=== PATIENT | female | born 1970 | race Caucasian/White ===

== ENCOUNTER 2017-08-25 20:39 | Emergency (ER) | payer OTHER ==
[~2017-08-25] VITALS: Ht 162.6 cm; Wt 63.5 kg
[~2017-08-25 20:39] MED LIST: ANTIBIOTICS X2; KETC15T TOP; LOR5/325 PO; SUM25 PO
[2017-08-25 21:53] VITALS: BP 142/83
--- NOTE | 2017-08-25 21:55 | ER Report ---
History and Physical Time Seen By MD: 21:54 HPI/ROS CHIEF COMPLAINT: Puncture wound HISTORY OF PRESENT ILLNESS: This is a 46-year-old female who presents to the emergency department for a puncture wound between the 4th and 5th toe. Patient states she was walking around her couch and there was an area where on the ground she kicked out of the antler tines and sunk into the webspace between the 4th and 5th toe on the right foot. Patient denies aches, chills, nausea, vomiting, diarrhea. REVIEW OF SYSTEMS: Respiratory: No cough, no dyspnea. Cardiovascular: No chest pain, no palpitations. Gastrointestinal: No vomiting, no abdominal pain. Musculoskeletal: No back pain. Integumentary: As above. Allergies: Coded Allergies: No Known Drug Allergies (Unverified , 08/25/17) Home Meds Active Scripts Amoxicillin/Pot Clav 875-125 Mg Tab (AUGMENTIN 875-125 TABLET) 1 Each Tablet, 1 TAB PO Q12H for 10 Days, #19 TAB 0 Refills Prov:ANTON ROWE [employer]-BC 08/25/17 Discontinued Reported Medications Ketoconazole (Nizoral) 15 Gm Cr, 0 TOP BID-TID for 7 Days, 0 Refills APPLY TO AFFECTED AREAS 04/04/08 [Antibiotics X2] No Conflict Check, 0 Refills 04/03/08 Acetaminophen/Hydrocodone (Lortab 5/325 Mg) 5 Mg/325 Mg Tab, 2 EA PO ONCE, 0 Refills 04/03/08 Sumatriptan Succinate (Imitrex) 25 Mg Tab, 25 MG PO PRN, 0 Refills 04/02/08 Past Medical/Surgical History The patient has a past medical and surgical history of migraines, wears contacts , 2. Reviewed Nurses Notes: Yes Constitutional Vital Sign - Last 24 Hours 08/25/17 21:53 Pulse 87 Resp 14 B/P (MAP) 142/83 Pulse Ox 95 Physical Exam General Appearance: The patient is alert, has no immediate need for airway protection and no current signs of toxicity. Eyes: Pupils equal and round no injection. Respiratory: Chest is non tender, lungs are clear to auscultation. Cardiac: regular rate and rhythm. Gastrointestinal: Abdomen is soft and non tender, no masses, bowel sounds normal. Musculoskeletal: Neck: Neck is supple and non tender. Extremities have full range of motion and are non tender. Skin: There is a puncture wound in the webspace between the 4th and 5th toes on the right foot. There is also a laceration about 1.5 cm long between the toes. DIFFERENTIAL DIAGNOSIS: After history and physical exam differential diagnosis was considered for puncture wound, laceration, tendon rupture. Medical Decision Making EKG/Imaging Imaging Location: [facility] Patient: Bárbara Hart : 1970 Visit/Account:[id number] Date of Sevice: 08/25/2017 EXAMINATION: Right foot 3 views HISTORY: Puncture wound. COMPARISON: None. FINDINGS: No evidence of acute fracture or dislocation about the right foot. Normal alignment. Joint spaces are preserved. Soft tissues are unremarkable. No radiopaque foreign body. IMPRESSION: Negative right foot. Report Dictated By: Arthur Rodgers MD at 08/25/2017 10:47 PM Report E-Signed By: Arthur Rodgers MD at 08/25/2017 10:48 PM WSN:[id number] ED Course/Re-evaluation ED Course The patient was admitted to return. A history and physical were obtained. Differential diagnoses were considered. A foot x-ray was obtained, showing no foreign body. The wound was anesthetized and irrigated and repaired as noted below. She tolerated well. The patient was given 1 dose of Augmentin in the emergency department. Patient's tetanus was updated. Patient was also sent home with prescription for Augmentin. Patient was instructed to monitor closely for infection. A dressing was applied to the wound. She was also encouraged to return to the emergency department or follow-up with her primary care provider for suture removal. Patient had no other questions or concerns at this time and was discharged home. Procedure: Laceration repair. Verbal consent was obtained from the patient. The 1.5 cm laceration on the web space between the right 5th and 4th toes was anesthetized in the usual fashion. The wound was scrubbed, draped and explored to its base with a gloved finger. There were no deep structures involved. No tendon injury was identified. The wound was repaired with 4 simple interrupted sutures using 5-0 Ethilon. The wound repair was simple. The procedure was performed by myself. Decision to Disposition Date: Aug 25, 2017 Decision to Disposition Time: 23:02 Depart Departure Latest Vital Signs Vital Signs Date Time Temp Pulse Resp B/P (MAP) Pulse Ox O2 Delivery O2 Flow Rate FiO2 08/25/17 21:53 87 14 142/83 95 Impression: Primary Impression: Puncture wound of foot, right Condition: Improved Disposition: HOME OR SELF-CARE New Scripts Amoxicillin/Pot Clav 875-125 Mg Tab (AUGMENTIN 875-125 TABLET) 1 Each Tablet 1 TAB PO Q12H for 10 Days, #19 TAB 0 Refills Prov: ANTON ROWE- 08/25/17 Patient Instructions: Acute Wound Care (ED), Laceration (ED), Puncture Wound ( ED) Additional Instructions: Drink plenty of fluids. Get plenty of rest. Take ibuprofen or tylenol for pain. Take the antibiotics as prescribed. Keep the dressing on for the next 12 hours. After 12 hours change the dressing as needed. Keep the wound clean and dry. You may shower but no swimming or hot tubbing until the sutures are removed. You may return to the emergency department to have the sutures removed or follow up with your primary care provider in 12 days. Even know you're on antibiotics please monitor for signs of infection. May return to the emergency department for any other concerns or worsening symptoms. Problem Qualifiers Primary Impression: Puncture wound of foot, right Encounter type: initial encounter Qualified Codes: S91.331A - Puncture wound without foreign body, right foot, initial encounter ANTON ROWE- Aug 25, 2017 21:55
[2017-08-25] MEDS ORDERED: DIPHTH/TETANUS/ACEL. PERTUSSIS IM ONLY ONE (22:05)
[2017-08-25] MEDS ORDERED: AMOX-559 PO (22:28)
[2017-08-25] MEDS ORDERED: AMOX/CLAV 875 MG TAB PO ONE (22:30)
--- NOTE | 2017-08-25 22:52 | RADIOLOGY IMAGING REPORT ---
FACILITY: [facility] [place] PATIENT NAME: Bárbara Hart : 1970 MR: [id number] V: [id number] EXAM DATE: ORDERING PHYSICIAN: ANTON ROWE TECHNOLOGIST: Location: [facility] Patient: Bárbara Hart : 1970 Visit/Account:[id number] Date of Sevice: 08/25/2017 EXAMINATION: Right foot 3 views HISTORY: Puncture wound. COMPARISON: None. FINDINGS: No evidence of acute fracture or dislocation about the right foot. Normal alignment. Joint spaces a re preserved. Soft tissues are unremarkable. No radiopaque foreign body. IMPRESSION: Negative right foot. Report Dictated By: Arthur Rodgers MD at 08/25/2017 10:47 PM Report E-Signed By: Arthur Rodgers MD at 08/25/2017 10:48 PM WSN:[id number]
== END 2017-08-25 23:31 | disposition home or self-care (01) ==
LOC: ER 21:56
DX: S91.331A Puncture wound without foreign body, right foot, initial encounter (principal); W22.8XXA Striking against or struck by other objects, initial encounter
CPT/HCPCS: 90471; 90715; 99283

== ENCOUNTER → 2018-06-12 | Outpatient (CLI) | payer OTHER ==
[~2018-06-12] MED LIST changes: +AMOX-559 PO
--- NOTE | 2018-06-16 12:15 | RADIOLOGY IMAGING REPORT ---
FACILITY: [facility] PATIENT NAME: ERENDIRA PASTOR : [id number] MR: [id number] V: [id number] EXAM DATE: ORDERING PHYSICIAN: NATALIE CERON TECHNOLOGIST: Eunice Kirk PROCEDURE:BILATERAL DIGITAL SCREENING MAMMOGRAM WITH CAD ASSISTED INTERPRETATION & 3D TOMOSYNTHESIS COMPARISON:None. INDICATIONS:SCREENING FINDINGS: Previous outside mammograms have just now become received for comparison 04/15/14, 01/14/13, 06/01/10, 05/09/10, 02/03/09. The breasts are heterogeneously dense which may obscure small masses. There is a biopsy clip in the 12 o'clock position of the Right breast in the middle 1/3. The parenchymal pattern has remained stable allowing for difference in mammographic technique & patient positioning. DIAGNOSTIC CATEGORY 2--BENIGN FINDING. RECOMMENDATIONS: ROUTINE MAMMOGRAM AND CLINICAL EVALUATION. IMPRESSION: BIRADS 2: Benign finding. No significant abnormality is seen. Dictated by: Lissy Sarah M.D. on 06/16/2018 at 9:16 Transcribed by: MAGY on 06/16/2018 at 10:48 Approved by: Lissy Sarah M.D. on 06/16/2018 at 12:14 [facility]
== END ==
LOC: MAMO 02:23
PROVIDERS: ATTEND Nurse Practitioner Family
DX: Z12.31 Encounter for screening mammogram for malignant neoplasm of breast (principal); Z80.3 Family history of malignant neoplasm of breast
CPT/HCPCS: 77063; 77067